=== PATIENT | female | born 1940 | race Caucasian/White ===

== ENCOUNTER → 2021-12-11 13:06 | Outpatient (REF) | payer MEDICAID, OTHER, SELFPAY ==
--- NOTE | 2021-12-11 13:14 | CA_ITS ---
Transthoracic Echocardiogram Patient (Last, First, Middle): Michelle Rooney, Gender: Female Date of : 1940 Age: 81 Procedure Date: 12/11/2021 Procedure Type: Transthoracic Echocardiogram Location: OP Height: 160. cm Weight: 70. kg BSA: 1.73 m2 Heart Rate: 65 bpm BP: 170 / 80 mmHg Fiberglasser: PHYLICIA Referring MD: Luann Grant MD Symptoms: PALPITATIONS Study Quality: Adequate ECG Rhythm: Sinus Conclusions: - The left ventricular systolic function is normal. The visually estimated ejection fraction is between 55-60%. - The inferolateral wall and basal inferior segment are hypokinetic. - No obvious valvular pathology seen on this study. Findings Left Ventricle Normal left ventricular cavity size. There is normal left ventricular wall thickness. The left ventricular systolic function is normal. The visually estimated ejection fraction is between 55-60%. There is evidence of regional wall motion abnormalities. Diastolic function is indeterminate on the basis of available data. 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 Wall Motion Rest Echo Findings The inferolateral wall and basal inferior segment are hypokinetic. Right Ventricle Normal right ventricular cavity size and systolic function. Atria Both atria are normal in size. Aortic Valve There is a normal trileaflet aortic valve. There is mild calcification of the aortic valve. There is no aortic valve stenosis. There is no aortic valve regurgitation. Mitral Valve The mitral valve appears normal. There is mild mitral annular calcification. There is trace mitral valve regurgitation. There is no mitral valve stenosis. Pulmonic Valve The pulmonic valve is likely normal. Tricuspid Valve There is trace tricuspid valve regurgitation. Tricuspid regurgitation envelope is inadequate for calculation of right ventricular systolic pressure. Great Vessels The asc aorta is normal in size. Venous The inferior vena cava is normal in size and collapses greater than 50% with inspiration. Pericardium/Pleural There is no evidence of pericardial effusion. Prior Study Comparison Changes noted compared to prior study dated: 06/13/2016. See comments on wall motion. Recommendations, Care & Conclusions No obvious valvular pathology seen on this study. Measurements 2D Linear Measurements IVSd: 1.37 0.6-0.9/0.6-1.0 cm LVIDd: 4.41 3.9-5.3/4.2-5.9 cm LVIDd Index: 2.55 2.4-3.2/2.2-3.1 cm/m2 LVIDs: 3.15 2.0-3.6 cm LVPWd: 1.03 0.7-1.1 cm LA Diam: 4.00 2.7-3.8/3.0-4.0 cm LAIDs Index: 2.31 1.5-2.3 cm/m2 LV Mass: 239.26 67-162/88-224 g LV Mass Index: 138.30 43-95/49-115 g/m2 LVOT Diam: 2.00 3.0+(-)1.3 cm 2D Systolic Function EF 4C: 67.10 >55% EF 2C: 55.30 >55% EF BiP: 61.90 >55% Aortic Valve AoV Pk Jules: 1.26 AoV Mn Jules: 0.88 AoV VTI: 0.28 AoV Pk Grad: 6.00 Aov Mn Grad: 4.00 LIZZETTE Cont.VTI: 2.29 LVOT LVOT Pk Jules: 0.84 LVOT Mn Jules: 0.63 LVOT VTI: 0.21 LVOT Pk Grad: 3.00 LVOT Mn Grad: 2.00 LVOT Diam: 2.00 LVOT Area: 3.14 Right Ventricle TAPSE (mm): 20.00 TVS' Jules: 10.00 Tricuspid Valve RA Press: 3.00 Great Vessels Aorta Sinus of Valsalva: 3.60 2.0-3.5 cm Ao Asc: 3.60 2.1-3.4 cm Pulmonary Valve PV Pk Jules: 0.75 Peak PV Grad: 2.00 Updated in Other Vendor System with Status of Final Vinay Quiroz MD electronically signed on 12/12/2021 12:14:15 PM with status of Final
== END ==
LOC: HO.CARD 13:06
PROVIDERS: PCP Internal Medicine; Visit Provider Internal Medicine
DX: R00.2 Palpitations (principal)
CPT/HCPCS: 93306

== ENCOUNTER 2021-12-12 12:58 | Outpatient (REF) | payer MEDICAID, OTHER, SELFPAY ==
--- NOTE | ~2021-12-12 | US_ITS ---
EXAMINATION: Noninvasive assessment of the bilateral lower extremities with ARTERIAL DUPLEX and ANKLE BRACHIAL INDICES (ABIs). CLINICAL INFORMATION: Peripheral vascular disease TECHNIQUE: Duplex Doppler techniques with waveform analysis and measurement of velocities in the bilateral common femoral, profunda femoris, superficial femoral, popliteal and tibial arteries were performed. Additionally, ankle pulse volume recordings, ankle pressure measurements and ankle brachial indices were obtained of the lower extremity arterial system bilaterally. The study was performed only at rest. COMPARISON: None FINDINGS: DIRECT DUPLEX DOPPLER FINDINGS: RIGHT LEG: Common femoral artery: 279 cm/s, phasicity: Biphasic Profunda femoris artery: 76.2 cm/s, phasicity: Biphasic Superficial femoral artery (proximal): 152 cm/s, phasicity: Biphasic Superficial femoral artery (mid): 113 cm/s, phasicity: Triphasic Superficial femoral artery (distal): 105 cm/s, phasicity: Biphasic Popliteal artery: 95.9 cm/s, phasicity: Biphasic Posterior tibial artery: 89.7 cm/s, phasicity: Biphasic Peroneal artery: 144 cm/s, phasicity: Biphasic LEFT LEG: Common femoral artery: 277 cm/s, phasicity: Biphasic Profunda femoris artery: 76.8 cm/s, phasicity: Biphasic Superficial femoral artery (proximal): 111 cm/s, phasicity: Biphasic Superficial femoral artery (mid): 81.5 cm/s, phasicity: Biphasic Superficial femoral artery (distal): 101 cm/s, phasicity: Biphasic Popliteal artery: 75.6 cm/s, phasicity: Biphasic Posterior tibial artery: 124 cm/s, phasicity: Biphasic Peroneal artery: 121 cm/s, phasicity: Biphasic ANKLE-BRACHIAL INDEX: Right: Inaccurate. Due to blood pressure is greater than 200 mmHg? Left: Inaccurate. Due to blood pressure is greater than 200 mmHg ANKLE PRESSURES: Right: PT greater than 200, DP greater than 200 Left: PT?greater than 210, DP?greater than 210 ANKLE PVR WAVEFORMS: Right: Normal Left: Normal US/US DAVID complete IMPRESSION: Right leg: Ankle-brachial index is nondiagnostic due to elevated pressures at the ankle. Unremarkable duplex arterial ultrasound without significant stenosis or occlusion Left leg: Ankle-brachial index is nondiagnostic due to elevated pressures at the ankle. Unremarkable duplex arterial ultrasound without significant stenosis or occlusion
--- NOTE | ~2021-12-12 | US_ITS ---
EXAMINATION: Noninvasive assessment of the bilateral lower extremities with ARTERIAL DUPLEX and ANKLE BRACHIAL INDICES (ABIs). CLINICAL INFORMATION: Peripheral vascular disease TECHNIQUE: Duplex Doppler techniques with waveform analysis and measurement of velocities in the bilateral common femoral, profunda femoris, superficial femoral, popliteal and tibial arteries were performed. Additionally, ankle pulse volume recordings, ankle pressure measurements and ankle brachial indices were obtained of the lower extremity arterial system bilaterally. The study was performed only at rest. COMPARISON: None FINDINGS: DIRECT DUPLEX DOPPLER FINDINGS: RIGHT LEG: Common femoral artery: 279 cm/s, phasicity: Biphasic Profunda femoris artery: 76.2 cm/s, phasicity: Biphasic Superficial femoral artery (proximal): 152 cm/s, phasicity: Biphasic Superficial femoral artery (mid): 113 cm/s, phasicity: Triphasic Superficial femoral artery (distal): 105 cm/s, phasicity: Biphasic Popliteal artery: 95.9 cm/s, phasicity: Biphasic Posterior tibial artery: 89.7 cm/s, phasicity: Biphasic Peroneal artery: 144 cm/s, phasicity: Biphasic LEFT LEG: Common femoral artery: 277 cm/s, phasicity: Biphasic Profunda femoris artery: 76.8 cm/s, phasicity: Biphasic Superficial femoral artery (proximal): 111 cm/s, phasicity: Biphasic Superficial femoral artery (mid): 81.5 cm/s, phasicity: Biphasic Superficial femoral artery (distal): 101 cm/s, phasicity: Biphasic Popliteal artery: 75.6 cm/s, phasicity: Biphasic Posterior tibial artery: 124 cm/s, phasicity: Biphasic Peroneal artery: 121 cm/s, phasicity: Biphasic ANKLE-BRACHIAL INDEX: Right: Inaccurate. Due to blood pressure is greater than 200 mmHg? Left: Inaccurate. Due to blood pressure is greater than 200 mmHg ANKLE PRESSURES: Right: PT greater than 200, DP greater than 200 Left: PT?greater than 210, DP?greater than 210 ANKLE PVR WAVEFORMS: Right: Normal Left: Normal US/US arterial duplex LE BI IMPRESSION: Right leg: Ankle-brachial index is nondiagnostic due to elevated pressures at the ankle. Unremarkable duplex arterial ultrasound without significant stenosis or occlusion Left leg: Ankle-brachial index is nondiagnostic due to elevated pressures at the ankle. Unremarkable duplex arterial ultrasound without significant stenosis or occlusion
== END 2021-12-12 12:59 | disposition home or self-care (01) ==
LOC: HO.US 12:58
PROVIDERS: Visit Provider Internal Medicine
DX: I73.9 Peripheral vascular disease, unspecified (principal)
CPT/HCPCS: 93923; 93925

== ENCOUNTER 2023-11-30 16:26 | Outpatient (REF) | payer MEDICAID, OTHER, SELFPAY ==
[2023-11-30 17:24] LABS: MANUAL DIFF FLAG NO
[2023-11-30 17:31] LABS: Basophils Percent Auto 0.2 % (0-2); Eosinophils Absolute Auto 0.1 X10*3/uL (0.0-0.4); Eosinophils Percent Auto 0.8 % (0-4); Hematocrit 41.6 % (37.0-47.0); Hemoglobin 14.1 g/dl (12.0-16.0); Imm Gran Abs Auto 0.05 X10*3/uL (0.00-0.03); Imm Gran Pct Auto 0.6 % (0.0-0.4); Lymphocytes Absolute Auto 2.4 X10*3/uL (1.2-4.9); Lymphocytes Percent Auto 27.6 % (20-40); Mean Corpuscular HGB Conc 33.9 g/dl (31.0-35.0); Mean Corpuscular Hemoglobin 30.1 pg (27.0-33.0); Mean Corpuscular Volume 88.7 fL (80.0-98.0); Mean Platelet Volume 11.2 fL (9.4-12.3); Monocytes Absolute Auto 0.6 X10*3/uL (0.1-1.2); Monocytes Percent Auto 6.7 % (2-11); Neutrophils Absolute Auto 5.5 x10*3/uL (2.0-8.3); Neutrophils Percent Auto 64.1 % (45-73); Platelet Count 224 X10*3/uL (160-400); Red Blood Count 4.69 X10*6/uL (4.20-5.50); White Blood Count 8.6 X10*3/uL (4.8-10.8)
[2023-11-30 18:03] LABS: Creatinine Urine 17.58 mg/dL; Microalbum/Creatinine Ratio Ur 73.9 ug/mg cr (<30)
[2023-11-30 18:14] LABS: Alanine Aminotransferase 25 U/L (0-31); Albumin Level 4.1 g/dL (3.5-5.0); Alkaline Phosphatase 86 U/L (39-117); Anion Gap 12 (12-20); Aspartate Amino Transferase 21 U/L (5-31); Bilirubin Total 0.5 mg/dL (0.0-1.0); Blood Urea Nitrogen 13 mg/dL (9-16); Calcium 9.5 mg/dL (8.4-10.2); Carbon Dioxide 30 mmol/L (22-29); Chloride 100 mmol/L (96-108); Cholesterol 232 mg/dL (<200); Estimated Glomerular Filt Rate > 60; Glucose Random 164 mg/dL (60-115); HDL Cholesterol 46 mg/dL (>40); LDL Cholesterol Calculated 161 mg/dL (<100); Potassium 3.7 mmol/L (3.3-5.1); Sodium 138 mmol/L (135-145); Triglycerides 126 mg/dL (<150)
[2023-11-30 18:29] LABS: TSH reflex Free T4 1.57 uIU/mL (0.32-4.0)
[2023-11-30 19:15] LABS: Reflex LDLD? No
== END 2023-11-30 16:27 | disposition home or self-care (01) ==
LOC: HO.HHCL 16:26
PROVIDERS: Visit Provider Family Medicine
DX: E11.65 Type 2 diabetes mellitus with hyperglycemia (principal); R42 Dizziness and giddiness; I10 Essential (primary) hypertension
CPT/HCPCS: 36415; 80053; 80061; 82043; 82570; 84443; 85025